=== PATIENT | male | born 1985 | race Caucasian/White ===

== ENCOUNTER 2021-03-05 16:33 | Emergency (ER) | payer SELFPAY ==
[2021-03-05] MEDS ORDERED: Ketorolac Tromethamine 30 MG/ML VIAL ONE (17:01)
[2021-03-05] MEDS ORDERED: predniSONE 20 MG TAB ONE (17:01)
[2021-03-05] MEDS ORDERED: Morphine 10 MG/ML VIAL ONE (17:01)
== END 2021-03-05 17:33 | disposition home or self-care (01) ==
LOC: BURERS 16:33
DX: M54.50 Low back pain, unspecified (principal); F17.210 Nicotine dependence, cigarettes, uncomplicated
CPT/HCPCS: 96372; 99283; J1885; J2270; J7512